=== PATIENT | female | born 1995 | race Caucasian/White ===

== ENCOUNTER → 2024-08-24 12:15 | Outpatient (CLI) | payer OTHER, SELFPAY ==
[2024-08-24 15:25] LABS: Free T4, Direct Thyroxine 0.27 ng/dL (0.78-2.19)
[2024-08-24 15:38] LABS: Thyroid Stimulating Hormone 70.8 uIU/mL (0.47-4.68)
== END ==
PROVIDERS: Referring Provider Obstetrics & Gynecology; Visit Provider Obstetrics & Gynecology
DX: E07.89 Other specified disorders of thyroid (principal)
CPT/HCPCS: 36415; 84439; 84443

== ENCOUNTER → 2024-09-04 15:24 | Outpatient (CLI) | payer OTHER, SELFPAY ==
--- NOTE | 2024-09-04 15:24 | DI.US.S_ITS ---
PROCEDURE: US THYROID INDICATIONS: abnormal thyroid function studies TECHNIQUE: Real-time scanning was performed of the thyroid gland, with image documentation. COMPARISON: None. FINDINGS: Thyroid: Right lobe measures 4.3 x 2.0 x 2.0 cm. Left lobe measures 4.4 x 1.6 x 1.8 cm. Isthmus is 0.46 cm thick. Echotexture is heterogenous. 1. IMPRESSION: Heterogenous thyroid echotexture without focal nodule ACR TI-RADS definitions and recommendations: TI-RADS 1 (benign): 0 points. FNA not needed. TI-RADS 2 (not suspicious): 2 points. FNA not needed. TI-RADS 3: 3 points. * FNA if 2.5 cm or larger, follow up if 1.5 cm or larger (at 1, 3, and 5 years). TI-RADS 4: 4-6 points. * FNA if 1.5 cm or larger, follow up if 1 cm or larger (at 1, 2, 3, and 5 years). TI-RADS 5: 7 points or more. * FNA if 1 cm or larger, follow up if 0.5 cm or larger (every year for 5 years). Dictated by: Dean Martínez M.D. on 09/04/2024 at 18:26 Approved by: Dean Martínez M.D. on 09/04/2024 at 18:27
== END ==
PROVIDERS: Referring Provider Obstetrics & Gynecology; Visit Provider Obstetrics & Gynecology
DX: E07.89 Other specified disorders of thyroid (principal); R79.89 Other specified abnormal findings of blood chemistry
CPT/HCPCS: 76536

== ENCOUNTER → 2024-09-07 15:40 | Outpatient (CLI) | payer OTHER, SELFPAY ==
[2024-09-07 17:02] LABS: Appearance Urine UA CLEAR; Bilirubin Urine UA NEGATIVE (NEGATIVE); Color Urine UA YELLOW; Glucose Urine UA NEGATIVE (Negative); Ketones Urine UA NEGATIVE (NEGATIVE); Leukocyte Esterase Urine UA 1+ (NEGATIVE); Nitrite Urine UA NEGATIVE (Negative); Occult Blood Urine UA TRACE-INTACT (Negative); Protein Urine UA NEGATIVE (Negative); Specific Gravity Urine UA <=1.005 (1.000-1.035); Urobilinogen Urine UA 0.2 E.U./dL (0.2)
[2024-09-07 17:03] LABS: pH Urine UA 6.5 (4.5-8.0)
[2024-09-07 17:11] LABS: RBC Urine None Seen (0-5/HPF); Urine Volume 10mL (spun)
[2024-09-07 17:12] LABS: Bacteria Urine None Seen; Culture Indicated Urine Specimen Cultured; Squamous Epithelial Cell Urine 0-1 /HPF (0-5/HPF); WBC Urine 0-1/HPF (0-5/HPF)
== END ==
LOC: LAB 15:41
PROVIDERS: Referring Provider Obstetrics & Gynecology; Visit Provider Obstetrics & Gynecology
DX: R30.0 Dysuria (principal)
CPT/HCPCS: 81001; 87086

== ENCOUNTER → 2024-10-12 15:00 | Outpatient (CLI) | payer OTHER, SELFPAY ==
[2024-10-12 15:57] LABS: T4 Total Thyroxine 9.83 ug/dL (5.5-11.0)
[2024-10-12 16:10] LABS: Thyroid Stimulating Hormone 0.582 uIU/mL (0.47-4.68)
== END ==
PROVIDERS: Referring Provider Student in an Organized Health Care Education/Training Program; Visit Provider Student in an Organized Health Care Education/Training Program
DX: E03.9 Hypothyroidism, unspecified (principal)
CPT/HCPCS: 36415; 84436; 84443

== ENCOUNTER → 2025-02-27 15:55 | Outpatient (CLI) | payer OTHER, SELFPAY ==
[2025-02-27 17:37] LABS: T4 Total Thyroxine 8.88 ug/dL (5.5-11.0)
[2025-02-27 17:50] LABS: Thyroid Stimulating Hormone 0.568 uIU/mL (0.47-4.68)
== END ==
LOC: LAB 15:56
PROVIDERS: Referring Provider Student in an Organized Health Care Education/Training Program; Visit Provider Student in an Organized Health Care Education/Training Program
DX: E03.9 Hypothyroidism, unspecified (principal)
CPT/HCPCS: 36415; 84436; 84443

== ENCOUNTER → 2025-03-07 16:50 | Outpatient (CLI) | payer OTHER, SELFPAY ==
[2025-03-07 18:12] LABS: Add Manual Diff / Slide Review NO; Basophils Absolute Auto 0 /uL (0-100); Basophils Percent Auto 0.4 % (0-2); Eosinophils Absolute Auto 100 /uL (0-450); Eosinophils Percent Auto 1.5 % (2-4); Hematocrit 43.6 % (36-46); Hemoglobin 14.9 g/dL (12.0-16.0); Lymphocytes Absolute Auto 2800 /uL (1100-4500); Lymphocytes Percent Auto 29.5 % (25-40); Mean Corpuscular HGB Conc 34.3 % (30-36); Mean Corpuscular Hemoglobin 30.5 PG (26-34); Mean Corpuscular Volume 89.1 fL (80-100); Monocytes Absolute Auto 600 /uL (0-900); Monocytes Percent Auto 6.4 % (3-14); Neutrophils Absolute Auto 5800 /uL (1500-7000); Neutrophils Percent Auto 62.2 % (50-75); Platelet Count 289 X10^3/uL (150-400); Red Blood Cell Count 4.89 X10^6/uL (4.0-5.2); Red Cell Distribution Width 12.9 % (11.6-14.8); White Blood Cell Count 9.4 X10^3/uL (4.5-11.0)
[2025-03-07 18:19] LABS: Hemoglobin A1C% w Est Avg Glu 4.9 % (4.0-6.0)
[2025-03-07 18:21] LABS: Alanine Aminotransferase 19 IU/L (<35); Albumin 4.7 g/dL (3.5-5.0); Albumin Globulin Ratio 1.7 (1.0-2.8); Alkaline Phosphatase 95 U/L (38-126); Aspartate Aminotransferase 25 IU/L (14-36); BUN Creatinine Ratio 29.8 (6-22); Bilirubin Total 0.3 mg/dL (0.2-1.3); Blood Urea Nitrogen 14 mg/dL (7-17); Calcium 9.3 mg/dL (8.4-10.2); Carbon Dioxide 23 mmol/L (22-32); Chloride 105 mmol/L (98-107); Estimated Glomerular Filt Rate > 60 mL/min (>60); Globulin 2.8 g/dL (1.7-4.1); Glucose 80 mg/dL (70-99); HEMOLYSIS < 15 (0-50); Potassium 3.8 mmol/L (3.4-5.1); Sodium 139 mmol/L (137-145); Total Protein 7.5 g/dL (6.3-8.2)
[2025-03-07 18:38] LABS: Vitamin D 25 Hydroxy (D3) 66.8 ng/mL (30.0-100.0)
[2025-03-07 18:56] LABS: Ferritin 57 ng/mL (6-137)
== END ==
PROVIDERS: Referring Provider Family Medicine; Visit Provider Family Medicine
DX: E55.9 Vitamin D deficiency, unspecified (principal); F32.9 Major depressive disorder, single episode, unspecified; E61.1 Iron deficiency; E03.9 Hypothyroidism, unspecified
CPT/HCPCS: 36415; 80053; 82306; 82728; 83036; 85025

== ENCOUNTER → 2025-03-28 16:11 | Outpatient (CLI) | payer OTHER, SELFPAY ==
[2025-03-28 16:53] LABS: Appearance Urine UA CLEAR; Bilirubin Urine UA NEGATIVE (NEGATIVE); Color Urine UA YELLOW; Glucose Urine UA NEGATIVE (Negative); Ketones Urine UA NEGATIVE (NEGATIVE); Leukocyte Esterase Urine UA 2+ (NEGATIVE); Nitrite Urine UA NEGATIVE (Negative); Occult Blood Urine UA NEGATIVE (Negative); Protein Urine UA NEGATIVE (Negative); Specific Gravity Urine UA <=1.005 (1.000-1.035); Urobilinogen Urine UA 0.2 E.U./dL (0.2)
[2025-03-28 16:55] LABS: pH Urine UA 6.5 (4.5-8.0)
[2025-03-28 17:19] LABS: Bacteria Urine None Seen; Culture Indicated Urine Specimen Cultured; RBC Urine None Seen (0-5/HPF); Squamous Epithelial Cell Urine 0-1 /HPF (0-5/HPF); Urine Volume 10mL (spun); WBC Urine 1-5/HPF (0-5/HPF)
== END ==
PROVIDERS: Obstetrics & Gynecology; PCP Family Medicine; Referring Provider Family Medicine; Visit Provider Emergency Medicine
DX: R30.0 Dysuria (principal)
CPT/HCPCS: 81001; 87086; 87147

== ENCOUNTER → 2025-07-08 12:28 | Outpatient (CLI) | payer OTHER, SELFPAY ==
[2025-07-08 13:24] LABS: Appearance Urine UA CLEAR; Bilirubin Urine UA NEGATIVE (NEGATIVE); Color Urine UA YELLOW; Glucose Urine UA NEGATIVE (Negative); Ketones Urine UA NEGATIVE (NEGATIVE); Leukocyte Esterase Urine UA 2+ (NEGATIVE); Nitrite Urine UA NEGATIVE (Negative); Occult Blood Urine UA NEGATIVE (Negative); Protein Urine UA NEGATIVE (Negative); Specific Gravity Urine UA <=1.005 (1.000-1.035); Urobilinogen Urine UA 0.2 E.U./dL (0.2)
[2025-07-08 13:30] LABS: pH Urine UA 7.5 (4.5-8.0)
[2025-07-08 14:03] LABS: HCG Quantitative /Beta subunit 274.73 mIU/mL
[2025-07-08 14:18] LABS: Culture Indicated Urine Cult Not Indicated
[2025-07-08 14:40] LABS: Free T4, Direct Thyroxine 1.42 ng/dL (0.78-2.19)
[2025-07-08 14:54] LABS: Thyroid Stimulating Hormone 3.78 uIU/mL (0.47-4.68)
== END ==
PROVIDERS: Student in an Organized Health Care Education/Training Program; PCP Family Medicine; Referring Provider Student in an Organized Health Care Education/Training Program; Visit Provider Student in an Organized Health Care Education/Training Program
DX: O26.899 Other specified pregnancy related conditions, unspecified trimester (principal); E03.9 Hypothyroidism, unspecified; R30.0 Dysuria; M54.50 Low back pain, unspecified
CPT/HCPCS: 36415; 81001; 84439; 84443; 84702

== ENCOUNTER → 2025-07-10 15:48 | Outpatient (CLI) | payer OTHER, SELFPAY ==
[2025-07-10 17:10] LABS: HCG Quantitative /Beta subunit 570.73 mIU/mL
== END ==
LOC: LAB 15:50
PROVIDERS: PCP Family Medicine; Referring Provider Obstetrics & Gynecology; Visit Provider Obstetrics & Gynecology
DX: N91.2 Amenorrhea, unspecified (principal)
CPT/HCPCS: 36415; 84702

== ENCOUNTER → 2025-08-08 09:35 | Outpatient (CLI) | payer OTHER, SELFPAY ==
[2025-08-08 11:32] LABS: Urine N gonorrhoeae NOT DETECTED
[2025-08-08 11:49] LABS: Urine Chlamydia NOT DETECTED
== END ==
PROVIDERS: PCP Family Medicine; Visit Provider Obstetrics & Gynecology
DX: O09.899 Supervision of other high risk pregnancies, unspecified trimester (principal); Z3A.08 8 weeks gestation of pregnancy
CPT/HCPCS: 87491; 87591

== ENCOUNTER → 2025-08-09 13:03 | Outpatient (CLI) | payer OTHER, SELFPAY ==
[2025-08-09 13:26] LABS: Appearance Urine UA CLEAR; Bilirubin Urine UA NEGATIVE (NEGATIVE); Color Urine UA YELLOW; Glucose Urine UA NEGATIVE (Negative); Ketones Urine UA NEGATIVE (NEGATIVE); Leukocyte Esterase Urine UA TRACE (NEGATIVE); Nitrite Urine UA NEGATIVE (Negative); Occult Blood Urine UA TRACE-INTACT (Negative); Protein Urine UA NEGATIVE (Negative); Specific Gravity Urine UA <=1.005 (1.000-1.035); Urobilinogen Urine UA 0.2 E.U./dL (0.2); pH Urine UA 6.0 (4.5-8.0)
[2025-08-09 13:27] LABS: Culture Indicated Urine Cult Not Indicated
== END ==
PROVIDERS: PCP Family Medicine; Referring Provider Obstetrics & Gynecology; Visit Provider Obstetrics & Gynecology
DX: O09.899 Supervision of other high risk pregnancies, unspecified trimester (principal); R30.9 Painful micturition, unspecified
CPT/HCPCS: 81001; 87086

== ENCOUNTER → 2025-08-21 16:46 | Outpatient (CLI) | payer OTHER, SELFPAY ==
[2025-08-21 17:47] LABS: Add Manual Diff / Slide Review NO; Hematocrit 42.4 % (36-46); Hemoglobin 14.4 g/dL (12.0-16.0); Lymphocytes Absolute Auto 2200 /uL (1100-4500); Mean Corpuscular HGB Conc 34.0 % (30-36); Mean Corpuscular Hemoglobin 30.1 PG (26-34); Mean Corpuscular Volume 88.8 fL (80-100); Platelet Count 290 X10^3/uL (150-400)
[2025-08-21 18:03] LABS: Natera Collection Specimen Collected
[2025-08-21 18:16] LABS: Alanine Aminotransferase 14 IU/L (<35); Blood Urea Nitrogen 10 mg/dL (7-17); Estimated Glomerular Filt Rate > 60 mL/min (>60); Uric Acid 2.8 mg/dL (2.5-6.2)
[2025-08-21 18:48] LABS: TSH w/ Reflex to FT4 1.17 uIU/mL (0.47-4.68)
[2025-08-22 14:51] LABS: Hepatitis B Surface Antigen NEGATIVE s/c (NEGATIVE)
[2025-08-22 15:09] LABS: HIV 1 & 2 Ab/Ag 4th Gen Combo NEGATIVE (NEGATIVE); Hep C Virus Ab w/Reflex Quant NEGATIVE s/c (NEGATIVE)
== END ==
LOC: LAB 16:50
PROVIDERS: PCP Family Medicine; Referring Provider Obstetrics & Gynecology; Visit Provider Obstetrics & Gynecology
DX: O09.899 Supervision of other high risk pregnancies, unspecified trimester (principal); E03.9 Hypothyroidism, unspecified; Z36.0 Encounter for antenatal screening for chromosomal anomalies
CPT/HCPCS: 36415; 80055; 82565; 84443; 84450; 84460; 84520; 84550; 86787; 86803; 86850; 86900; 86901; 87389

== ENCOUNTER → 2025-09-20 15:53 | Outpatient (CLI) | payer OTHER, SELFPAY | PROVIDERS: PCP Family Medicine; Visit Provider Obstetrics & Gynecology | DX: O99.280 Endocrine, nutritional and metabolic diseases complicating pregnancy, unspecified trimester (principal); R30.0 Dysuria; E03.9 Hypothyroidism, unspecified | CPT/HCPCS: 87086 ==

== ENCOUNTER → 2025-09-20 16:12 | Outpatient (CLI) | payer OTHER, SELFPAY ==
[2025-09-20 17:55] LABS: Free T4, Direct Thyroxine 1.29 ng/dL (0.78-2.19)
[2025-09-20 18:09] LABS: Thyroid Stimulating Hormone 0.998 uIU/mL (0.47-4.68)
== END ==
LOC: LAB 16:13
PROVIDERS: PCP Family Medicine; Referring Provider Obstetrics & Gynecology; Visit Provider Obstetrics & Gynecology
DX: O99.280 Endocrine, nutritional and metabolic diseases complicating pregnancy, unspecified trimester (principal); Z36.0 Encounter for antenatal screening for chromosomal anomalies; E03.9 Hypothyroidism, unspecified
CPT/HCPCS: 36415; 82105; 84439; 84443